=== PATIENT | female | born 1985 | race Caucasian/White ===

== ENCOUNTER 2018-08-29 10:59 | Emergency (ER) | payer SELFPAY ==
[~2018-08-29] VITALS: Ht 167.6 cm; Wt 54.5 kg
[~2018-08-29 10:59] MED LIST: PRENAT PO
[2018-08-29 11:05] VITALS: Ht 167.6 cm; Wt 54.5 kg
[2018-08-29] MEDS ORDERED: SOD CHLORIDE 0.9% 1,000 ML IV STA (11:35)
--- NOTE | 2018-08-29 13:12 | ERD ---
ER Documentation Chief Complaint Chief Complaint SWOLLEN ANLKE, BILATERAL RASH ON LEGS, REDNESS ON HANDS/ARMS HPI History is difficult to obtain from this patient given her underlying psych iatric issues and paranoia. This is a 33-year-old female presents to the emergency room for evaluation of pain in her ankles. The patient states that "I am trying to find the answer", I know people are after me and trying to kill me" ROS All systems reviewed and are negative except as per history of present illness. Medications Home Meds Reported Medications Multivit/Min/Fol Ac/Iron/Pren* ( S*) 1 Tab Tab, 1 TAB PO DAILY, TAB 01/01/16 Allergies Allergies: Coded Allergies: No Known Allergy (Unverified , 01/01/16) PMhx/Soc Medical and Surgical Hx: pt denies Medical Hx, pt denies Surgical Hx Hx Psychiatric Problems: No (DENIES) Hx Alcohol Use: Yes Hx Substance Use: Yes Hx Tobacco Use: Yes Smoking Status: Current some day smoker Physical Exam Vitals Vital Signs Date Temp Pulse Resp B/P (MAP) Pulse Ox O2 O2 Flow FiO2 Time Delivery Rate 08/29/18 98.8 116 16 125/82 100 11:05 (96) Physical Exam INITIAL VITAL SIGNS: Reviewed by me GENERAL: The patient has a disheveled appearance HEENT: Dry mucous membranes, pupils equal, round, and reactive to light. EOMI. There is no scleral icterus. NECK: C-spine is soft and supple, there is no meningismus. There is no cervical lymphadenopathy. LUNGS: Clear to auscultation bilaterally. There are no rales, wheezes or rhonchi. HEART: Tachycardic, no murmurs, clicks, rubs or gallops. ABDOMEN: Soft, non-tender, non-distended. There are bowel sounds in all four quadrants. No rebound or guarding. EXTREMITIES: There is no peripheral cyanosis or edema. Mild bilateral lower extremity erythema NEUROLOGICAL: The patient moves all four extremities with 5/5 strength. Cranial nerves II - XII are intact. Normal gait. Alert and oriented SKIN: There is no apparent rash or petechiae. HEME/LYMPHATIC: There is no evidence of excessive bruising or lymphedema. PSYCHIATRIC: The patient does appear to be agitated Results 24 hrs Laboratory Tests Test 08/29/18 12:44 08/29/18 12:51 Urine Color STRAW Urine Clarity CLEAR Urine pH 8.0 Urine Specific [place] 1.006 Urine Ketones NEGATIVE mg/dL Urine Nitrite NEGATIVE mg/dL Urine Bilirubin NEGATIVE mg/dL Urine Urobilinogen NEGATIVE mg/dL Urine Leukocyte Esterase NEGATIVE Marybeth/ul Urine Microscopic RBC 73 /HPF Urine Microscopic WBC 3 /HPF Urine Squamous Epithelial Cells FEW /HPF Urine Mucus FEW /HPF Urine Hemoglobin 3+ mg/dL Urine Glucose NEGATIVE mg/dL Urine Total Protein NEGATIVE mg/dl POC Beta HCG, Qualitative NEGATIVE Current Medications Medications Dose Sig/Douglas Start Time Status Last (Trade) Ordered Route PRN Stop Time Admin Dose Reason Admin Sodium 1,000 ml @ Q1H STAT 08/29/18 DC Chloride 1,000 mls/hr IV 11:35 08/29/18 11:41 Procedures/MDM This 33-year-old female presents to the ER for evaluation of agitation and paranoid behavior. The patient definitely has paranoid ideations. She denies homicidal or suicidal ideations at this time however the patient is extremely paranoid and is refusing to give blood work. She is only giving a urine sample at this time and states "you are going to put something in my blood". This patient will benefit from tele-psych consult to determine whether or not this patient will need inpatient psychiatric admission. Departure Diagnosis: Primary Impression: Paranoid behavior Additional Impression: Agitation Condition: Stable CORTNEY YOO DO Aug 29, 2018 13:12
[2018-08-29] MEDS ORDERED: OLANZAPINE 5 MG TAB PO ONE (13:30)
--- NOTE | 2018-08-29 13:41 | PSY ---
Date/Time of Note Date/Time of Note DATE: 08/29/18 TIME: 16:38 Psychiatric Subjective Eval Consent Pt consented to telemedicine: Yes Subjective Evaluation Patient location: emergency Chief Complaint: SWOLLEN ANLKE, BILATERAL RASH ON LEGS, REDNESS ON HANDS/ARMS History of present illness HPI: 33 yo female, per medical MD note, "History is difficult to obtain from this patient given her underlying psychiatric issues and paranoia. This is a 33-year-old female presents to the emergency room for evaluation of pain in her ankles. The patient states that "I am trying to find the answer", I know people are after me and trying to kill me"" MD tried to speak with pt. She was paranoid, kept closing eyes, one time reported her name but otherwise would not answer questions. Was very guarded. Per nurse, bib 911 complaining of foot pain but was reporting severe paranoia, that people are after her, refused blood draw, was severely paranoid and disorganized Past Psych Hx: unable to obtain due to paranoia PMHx: unable to obtain due to paranoia Meds: unable to obtain due to paranoia Allergies: unable to obtain due to paranoia MSE :casually groomed, uncooperative, paranoid, lying down, calm, little movement, closes eyes frequently, says "what" once, no other information obtainable Imp: 33 yo female , paranoid, psychotic, severe utox uhcg For moderate agitation Zyprexa 5mg po prn For severe agitation chlorpromazine 25mg im prn pt will likely need admission and would recommend this, recommend obtaining parallel hx to confirm if there is fxnal decline, at this point pt appears to be severely disabled and there is not enough evidence to suggest otherwise Medical history Problems Medical Problems: (1) Agitation Status: Acute (2) Paranoid behavior Status: Acute Allergies: Coded Allergies: No Known Allergy (Unverified , 01/01/16) Psychiatric Objective Eval Mental Status Examination: Laboratory Results Laboratory Tests Test 08/29/18 12:44 08/29/18 12:51 Urine Color STRAW Urine Clarity CLEAR Urine pH 8.0 Urine Specific [place] 1.006 Urine Ketones NEGATIVE mg/dL Urine Nitrite NEGATIVE mg/dL Urine Bilirubin NEGATIVE mg/dL Urine Urobilinogen NEGATIVE mg/dL Urine Leukocyte Esterase NEGATIVE Marybeth/ul Urine Microscopic RBC 73 /HPF Urine Microscopic WBC 3 /HPF Urine Squamous Epithelial Cells FEW /HPF Urine Mucus FEW /HPF Urine Hemoglobin 3+ mg/dL Urine Glucose NEGATIVE mg/dL Urine Total Protein NEGATIVE mg/dl Urine Opiates Screen Negative Urine Amphetamines Screen Negative Urine Benzodiazepines Screen Negative Urine Cocaine Screen Negative Urine Cannabinoids Negative POC Beta HCG, Qualitative NEGATIVE Assessment and Plan Recommendation/Plan Multiple antipsychotics: No Discharge Disposition: Psychiatric inpatient Legal Status: Voluntary MAYI LOZADA Aug 29, 2018 13:41
[2018-08-30 03:57] VITALS: BP 94/65; PULSE 95; RESP 14
--- NOTE | 2018-08-30 05:55 | EN ---
Date/Time of Note Date/Time of Note DATE: 08/30/18 TIME: 05:54 ER Progress Note Psychiatric Observation Note: Indication: Psychosis Duration: Greater than 18 hours Family history: As documented in original HPI The patient was observed with serial exams over the above timeframe. The patient continued to be well-appearing, and observation continued without complication. All other needs have been met during emergency department stay. Routine psychiatric medications ordered: Still pending psychiatric placement Hold status: Patient is still pending placement. Recommended for 5150 by telemetry psychiatry. SUNNI CAGE Aug 30, 2018 05:55
--- NOTE | 2018-08-30 06:15 | QN ---
Documentation Comment Psychiatric Observation Note: Indication: Suicidal ideation Duration: Greater than 19 hours Family history: As documented in original HPI The patient was observed with serial exams over the above timeframe. The patient continued to be well-appearing, and observation continued without complication. All other needs have been met during emergency department stay. Routine psychiatric medications ordered: Not requested by telemetry medicine psychiatry Hold status: Telemetry medicine psychiatry has recommended 5150 hold Placement status: The patient is pending placement at this time. [facility] because she has required pain medication of her ankles. On inspection of the patient's ankle she does have evidence of cellulitis secondary to subacute abrasions. The patient's left ankle is edematous, erythematous and slightly tender. There are no petechia or purpura noted. No crepitus noted. Range of motion is appropriate. This does not appear to be intra-articular. The patient will benefit from oral antibiotics and was provided with Bactrim and Keflex here in the emergency room. The patient will continue to be boarding. This is something that can be treated on an outpatient basis and does not necessitate medical admission. Additional diagnostic impression: Cellulitis of the left lower extremity DIRK KEATING MD Aug 30, 2018 06:15
[2018-08-30] MEDS ORDERED: CEPHALEXIN 500 MG CAP PO ONE (06:30)
[2018-08-30] MEDS ORDERED: TRIMETHOPRIM/SULFAMETHOX (DS) TAB PO ONE (06:30)
[2018-08-30] MEDS ORDERED: TRIMETHOPRIM/SULFAMETHOX (DS) TAB PO SCH (09:00)
[2018-08-30] MEDS ORDERED: CEPHALEXIN 500 MG CAP PO SCH (09:00)
== END 2018-08-30 11:43 | disposition left against medical advice (07) ==
LOC: E/R 10:59
DX: F03.91 Unspecified dementia, unspecified severity, with behavioral disturbance (principal); R45.1 Restlessness and agitation
CPT/HCPCS: 80053; 80307; 81001; 81025; 85025; 99283; J7030